=== PATIENT | male | born 1965 ===

== ENCOUNTER 2016-07-15 15:48 | Emergency (ER) | payer SELFPAY ==
[~2016-07-15] VITALS: Ht 170.2 cm; Wt 80.0 kg
[2016-07-15 15:55] VITALS: Ht 170.2 cm; Wt 80.0 kg
== END 2016-07-15 16:08 | disposition left against medical advice (07) ==
LOC: E/R 15:48
DX: Z53.21 Procedure and treatment not carried out due to patient leaving prior to being seen by health care provider (principal)